=== PATIENT | female | born 1985 | race Caucasian/White ===

== ENCOUNTER 2017-07-12 09:11 | Inpatient (IN) | payer BC ==
[2017-07-12] MEDS ORDERED: Witch Hazel PAD* JAR TOPICAL PRN (09:28)
[2017-07-12] MEDS ORDERED: Dibucaine 1% 28.35 GM TUBE PR PRN (09:28)
[2017-07-12] MEDS ORDERED: Acetaminophen TAB* 325 MG PO PRN (09:28)
[2017-07-12] MEDS ORDERED: Glycerin ADULT SUPP PR PRN (09:28)
[2017-07-12] MEDS: Ibuprofen TAB* 600 MG PO PRN ×2 (12:06→22:13)
[2017-07-12] MEDS ORDERED: Simethicone TAB* 80 MG TAB.CHEW PO SCH (12:30)
[2017-07-12] MEDS: Docusate CAP* 100 MG PO SCH (22:14)
[2017-07-13 07:51] VITALS: BP 113/66
[2017-07-13] MEDS ORDERED: Ferrous Gluconate TAB* 324 MG TAB PO SCH (09:00)
[2017-07-13 09:29] LABS: Hematocrit 36 % (35-47); Hemoglobin 12.6 g/dl (12.0-16.0); Mean Corpuscular HGB Conc 35 g/dl (31-36); Mean Corpuscular Hemoglobin 31 pg (27-31); Mean Corpuscular Volume 88 fL (80-97); Mean Platelet Volume 7 um3 (7.4-10.4); Red Blood Count 4.12 10^6/ul (4.0-5.4); Red Cell Distribution Width 13 % (10.5-15); White Blood Count 13.1 10^3/ul (3.5-10.8)
[2017-07-13] MEDS: Docusate CAP* 100 MG PO SCH (10:17)
[2017-07-13] MEDS: Ibuprofen TAB* 600 MG PO PRN (11:32)
== END 2017-07-13 13:48 | disposition home or self-care (01) | DRG 560 ==
LOC: MCHOBOUT 09:11 → MCHOB 09:12
PROVIDERS: ADMIT Midwife; ATTEND Midwife
PROC: 10E0XZZ Delivery of Products of Conception, External Approach (ICD-10-PCS; principal; 2017-07-12)
DX: O62.3 Precipitate labor (principal); O48.0 Post-term pregnancy; Z3A.40 40 weeks gestation of pregnancy; Z37.0 Single live birth
CPT/HCPCS: 36415; 85025; A9270-GY

== ENCOUNTER 2019-01-26 09:17 | Inpatient (IN) | payer BC ==
[2019-01-26] MEDS ORDERED: Dibucaine 1% 28.35 GM TUBE PR PRN (10:03)
[2019-01-26] MEDS ORDERED: Acetaminophen TAB* 325 MG PO PRN (10:03)
[2019-01-26] MEDS ORDERED: Witch Hazel PAD* JAR TOPICAL PRN (10:03)
[2019-01-26] MEDS ORDERED: Glycerin ADULT SUPP PR PRN (10:03)
--- NOTE | 2019-01-26 10:10 | HP ---
General Information - Reason for Visit IUP at 40-12/18 in active labor - General Information Maternal Age: 33 Grav: 2 Para: 1 SAB: 0 IEA: 0 Estimated Due Date: 01/23/19 Determined By: Early Ultrasound Gestational Age in Weeks/Days: 40-37 Maternal Blood Type and Rh: O Positive - Results this Serology/RPR Result: Non-Reactive Rubella Result: Immune HBsAg Result: Negative HIV Result: Negative GBS Culture Result: Negative Past Medical History Delivery History: Hx Uncomplicated Vaginal Delivery Delivery History Comment: 06/2017 liveborn male. Delivered at [facility] [place] by Gigi Agudelo CNM Pertinent Past Medical History: Non-Contributory Pertinent Past Surgical History: None Pertinent Family History: See Records Family History Comment: Mother: Migraine, high cholesterol, Hepatitis B PGF: . Leukemia MGM: . Lung cancer PGF: . Heart disease - Antepartal Records Antepartal Records: Reviewed, Uncomplicated Review of Systems Constitutional: Uncomfortable - with UCs CV Complaint: No Respiratory: Shortness of Breath: No Gastrointestinal: No Nausea/Vomiting, Normal Bowel Movement Genitourinary: No Dysuria, No Bleeding, No Leaking Fluid Musculoskeletal: Contractions, Pressure Neurological: No Headache, No Visual Changes Movement: Normal Exam Allergies/Adverse Reactions: Allergies Penicillins Allergy (Verified 01/26/19 09:45) Hives BP 116/68 HR 77 RR 20 T 98 SpO2 100% on RA - Measurements Height: 5 ft 7 in Weight: 165 lb Weight in lbs: [phone] Body Mass Index (BMI): 25.8 Pre- Weight: 136 lb Weight Gained This : 29 lbs and 0 ozs - Exam Breast: Breast Exam Deferred CVA: No CVA Tenderness Extremities: No Edema Heart: Normal Rhythm/Heart Sounds HEENT: No Significant Findings Lungs: Clear Bilaterally Rectal: Rectal Exam Deferred Reflexes: DTR 2+ - Abdominal Exam Abdomen Exam: Non-Tender, Fundal Height Consistent with Dates - Ultrasound/Biophysical Profile Ultrasound Status: Not Done Targeted Exam Findings See L&D Outpatient Visit Provider Note for Findings: N/A Estimated Weight: EFW 7lbs Cervical Exam: 8cm Effacement: 100% Station: -1 Presenting Part: Vertex Membrane Status: Bulging Amniotic Fluid Evaluation: Gross Rupture - immediately following VE with strong urge to push Sterile Speculum Exam: not done Bleeding/Discharge: None EFM Findings - External Monitor Findings Baseline Heart Rate: 115 External Monitor Findings: Accelerations Present, No Pattern of Variable or Late Decelerations, Variability Moderate, Baseline Stable External Monitor Findings Comment: No evidence of metabolic acidemia Contractions: Regular, Strong, >90 Seconds Contraction Frequency: q 2 min Assessment/Plan - Assessment IUP at 40-3/7, delivery imminent - Plan Plan: Admit - Anticipate Vaginal Delivery - Date/Time of Admission Date of Admission: 01/26/19 Time of Admission: 09:21
--- NOTE | 2019-01-26 10:15 | PROCNOTE ---
[facility] OB: Delivery Note - Delivery A Date of : 01/26/19 Time of : 09:44 Oliver Sex: Female Score 1 Minute: 8 Score 5 Minutes: 8 Gestational Age in Weeks and Days at Delivery: 40 Weeks and 3 Days Delivery Method: Spontaneous Vaginal Labor: Spontaneous Did Patient attempt ?: N/A, No Previous Amniotic Fluid: Clear Estimated Blood Loss: 200 Anesthesia/Analgesia: None Delivered By: Gigi Agudelo - Nursery Level of Nursery: Regular/Bedside - Perineum Perineal Injury: None/Intact Perineal Repair: None - Events Delivery Events of Note: Precipitous Delivery - Additional Delivery Notes Additional Delivery Notes: Pt admitted in active labor, delivery imminent. Length of labor 1 hour, 50 min. Pushed x 4 min. liveborn female. Slow, controlled delivery of head. OA to ROSALBA. Shoulders followed with strong maternal push. Oliver vigorous with spontaneous cry. HR>110bpm. Delivered to maternal abdomen. Cord clamped x 2 and cut by FOB when pulsations ceased. Spontaneous delivery intact placenta. Membranes complete. Fundus firm to massage with minimal bleeding noted. Perineum intact. No repair needed as above. EBL 200mL. At time of note mother and infant in stable condition. Planning to breast feed.
[2019-01-26] MEDS ORDERED: Lactated Ringers 1000 ML Bag* 1,000 ML IV SCH (11:00)
[2019-01-26] MEDS: Ibuprofen TAB* 600 MG PO PRN ×2 (11:54→18:32)
[2019-01-26] MEDS ORDERED: Simethicone TAB* 80 MG TAB.CHEW PO SCH (12:30)
[2019-01-26] MEDS: Docusate CAP* 100 MG PO SCH ×2 (16:33→20:33)
[2019-01-27] MEDS: Ibuprofen TAB* 600 MG PO PRN (04:40)
[2019-01-27 07:02] LABS: ABS Basophils 0 10^3/ul (0-0.2); ABS Eosinophils 0 10^3/ul (0-0.6); ABS Lymphocytes 1.6 10^3/ul (1.0-4.8); ABS Monocytes 0.6 10^3/ul (0-0.8); ABS Neutrophils 8.6 10^3/ul (1.5-7.7); ABS Nucleated RBC 0 10^3/ul; Eosinophil % 0.1 %; Hematocrit 35 % (33-41); Lymphocyte % 14.7 %; Mean Corpuscular HGB Conc 34 g/dL (31-36); Mean Corpuscular Hemoglobin 30 pg (27-31); Mean Corpuscular Volume 88 fL (80-97); Mean Platelet Volume 7.4 fL (7.4-10.4); Nucleated Red Blood Cells % 0; Platelet Count 182 10^3/uL (150-450); Red Blood Count 3.94 10^6 /uL (3.70-4.87); Red Cell Distribution Width 14 % (10.5-15); White Blood Count 10.8 10^3/uL (3.5-10.8)
[2019-01-27] MEDS ORDERED: Ferrous Gluconate TAB* 324 MG TAB PO SCH (09:00)
[2019-01-27] MEDS: Docusate CAP* 100 MG PO SCH (09:24)
[2019-01-27 09:34] VITALS: BP 136/83
== END 2019-01-27 12:08 | disposition home or self-care (01) | DRG 560 ==
LOC: MCHOBOUT 09:17 → MCHOB 09:21
PROVIDERS: ADMIT Midwife; ATTEND Midwife
PROC: 4A1HXCZ Monitoring of Products of Conception, Cardiac Rate, External Approach (ICD-10-PCS; principal; 2019-01-26)
PROC: 10E0XZZ Delivery of Products of Conception, External Approach (ICD-10-PCS; 2019-01-26)
DX: O48.0 Post-term pregnancy (principal); Z37.0 Single live birth; Z3A.40 40 weeks gestation of pregnancy; O62.3 Precipitate labor
CPT/HCPCS: 36415; 85025; A9270-GY

== ENCOUNTER 2021-05-03 02:46 | Inpatient (IN) ==
[2021-05-03] MEDS ORDERED: Dibucaine 1% OINT 28.35 GM TUBE PR PRN (03:29)
[2021-05-03] MEDS ORDERED: Witch Hazel PAD JAR TOPICAL PRN (03:29)
[2021-05-03] MEDS ORDERED: Glycerin ADULT 2.4 gm SUPP PR PRN (03:29)
[2021-05-03] MEDS ORDERED: Buffered Lidocaine 1% SYRIN 1 ml INTRADERM ONE (03:29)
[2021-05-03] MEDS ORDERED: Lactated Ringers 1000 ml BAG 1,000 ML IV SCH ×2 (04:00)
[2021-05-03 05:11] LABS: Urine Benzodiazepine Screen None Detected (None Detect); Urine Cannabinoids Screen None Detected (None Detect); Urine Opiates Screen None Detected (None Detect)
[2021-05-04 07:19] LABS: ABS Lymphocytes 1.5 10^3/ul (1.0-4.8); ABS Monocytes 0.5 10^3/ul (0-0.8); Eosinophil % 0.3 %; Hematocrit 33 % (35-47); Hemoglobin 11.6 g/dL (12.0-16.0); Lymphocyte % 13.3 %; Mean Corpuscular HGB Conc 35 g/dL (31-36); Mean Corpuscular Hemoglobin 31 pg (27-31); Mean Corpuscular Volume 88 fL (80-97); Mean Platelet Volume 7.2 fL (7.4-10.4); Platelet Count 199 10^3/uL (150-450); Red Blood Count 3.72 10^6 /uL (3.70-4.87); Red Cell Distribution Width 14 % (10-15); White Blood Count 11.1 10^3/uL (3.5-10.8)
[2021-05-04 07:39] VITALS: BP 114/74
== END 2021-05-04 13:03 | disposition home or self-care (01) | DRG 560 ==
LOC: MCHOBOUT 02:46 → MCHOB 03:08
PROVIDERS: ADMIT Midwife; ATTEND Midwife

== ENCOUNTER 2023-04-15 09:56 | Inpatient (IN) ==
[2023-04-15] MEDS ORDERED: Buffered Lidocaine 1% SYRIN 1 ml INTRADERM ONE (11:31)
[2023-04-15] MEDS ORDERED: Promethazine INJ(RESTRICTED) 25 MG/ML 1 ml VIAL IV PRN (11:31)
[2023-04-15] MEDS ORDERED: Nalbuphine 10 MG/ML 1 ML VIAL IV PRN (11:31)
[2023-04-15] MEDS ORDERED: Lactated Ringers 1000 ml BAG 1,000 ML IV ONE (11:31)
[2023-04-15] MEDS ORDERED: Ondansetron 4 mg VIAL 2 MG/ML 2 ml VIAL IV PRN (11:40)
[2023-04-15] MEDS ORDERED: Oxytocin in LR 20,000 MILLI.UNIT/1,000 ML BAG IV SCH (11:45)
[2023-04-15] MEDS ORDERED: Lactated Ringers 1000 ml BAG 1,000 ML IV SCH ×2 (12:00→22:00)
[2023-04-15 13:20] LABS: ABS Lymphocytes 1.3 10^3/uL (1.0-4.8); ABS Monocytes 0.4 10^3/uL (0.0-0.9); ABS Neutrophils 7.3 10^3/uL (1.5-7.6); ABS Nucleated RBC 0.01 10^3/ul; Eosinophil % 0.1 %; Hematocrit 37.4 % (35-45); Hemoglobin 12.9 g/dL (11.5-14.3); Lymphocyte % 14.3 %; Mean Corpuscular Hemoglobin 30.4 pg (27-33); Mean Corpuscular Hgb Conc 34.6 g/dL (31-36); Mean Corpuscular Volume 87.7 fL (80-97); Mean Platelet Volume 7.5 fL (7.5-11.2); Nucleated Red Blood Cells % 0.1 /100 WBC (0.0-0.4); Platelet Count 233 10^3/uL (150-450); Red Blood Count 4.26 10^6/uL (3.63-4.92); Red Cell Distribution Width 13.3 % (12-17); White Blood Count 9.1 10^3/uL (3.8-11.8)
[2023-04-15 13:30] LABS: Urine Benzodiazepine Screen None Detected (None Detect); Urine Cannabinoids Screen None Detected (None Detect); Urine Opiates Screen None Detected (None Detect)
[2023-04-15] MEDS ORDERED: Witch Hazel PAD JAR TOPICAL PRN (21:10)
[2023-04-15] MEDS ORDERED: Glycerin ADULT 2.4 gm SUPP PR PRN (21:10)
[2023-04-15] MEDS ORDERED: Dibucaine 1% OINT 28.35 GM TUBE PR PRN (21:10)
[2023-04-16 08:51] LABS: ABS Monocytes 0.6 10^3/uL (0.0-0.9); ABS Neutrophils 10.4 10^3/uL (1.5-7.6); Hematocrit 33.9 % (35-45); Lymphocyte % 8.2 %; Mean Corpuscular Hemoglobin 30.3 pg (27-33); Mean Corpuscular Hgb Conc 35.5 g/dL (31-36); Mean Corpuscular Volume 85.3 fL (80-97); Platelet Count 224 10^3/uL (150-450); Red Blood Count 3.97 10^6/uL (3.63-4.92); Red Cell Distribution Width 12.8 % (12-17)
[2023-04-17 09:28] VITALS: BP 114/71
== END 2023-04-17 10:14 | disposition home or self-care (01) | DRG 560 ==
LOC: MCHOBOUT 09:56 → MCHOB 10:43
PROVIDERS: ADMIT Advanced Practice Midwife; ATTEND Advanced Practice Midwife